=== PATIENT | male | born 1960 | race Caucasian/White ===

== ENCOUNTER 2022-01-11 23:05 | Emergency (ER) | payer OTHER ==
[2022-01-12] MEDS ORDERED: Ondansetron PF 4 MG/2 ML Vial ONE (01:27)
[2022-01-12 01:40] LABS: #Eosinphils 0.1 10x3/uL (0.0-0.5); #Monocytes 0.9 10x3/uL (0.0-1.1); #Neutrophils 14.3 10x3/uL (1.5-8.4); %Basophils 0.2 % (0.0-2.0); %Eosinophils 0.3 % (0.0-6.0); %Lymphocytes 8.6 % (18.0-47.0); %Monocytes 5.1 % (0.0-10.0); %Neutrophils 85.4 % (40.0-75.0); Hemoglobin 13.4 g/dL (13.5-17.5); Mean Corpuscular HGB CONC 35.8 g/dL (32.0-36.0); Mean Corpuscular Hemoglobin 28.5 pg (27.0-33.0); Mean Corpuscular Volume 79.6 fl (81.2-95.1); Mean Platelet Volume 9.9 fl (7.4-10.4); Platelet Count 336 10x3/uL (150-450); RBC Distribution Width 13.6 % (11.5-14.5); White Blood Cell (WBC) Count 16.7 10x3/uL (3.5-10.5)
[2022-01-12 01:54] LABS: SARS-CoV-2 NAA Rapid Test Not Detected (NotDetected)
[2022-01-12 01:58] LABS: ALT (SGPT) 28 U/L (8-55); AST (SGOT) 16 U/L (5-34); Albumin 4.5 g/dL (3.5-5.0); Alkaline Phosphatase 128 U/L (40-110); Anion Gap 18 mmol/L (10-20); BUN (Urea Nitrogen) 37 mg/dL (8.4-25.7); Bilirubin, Total 1.7 mg/dL (0.2-1.2); Calc. Creatinine Clearance 0 mL/min (70-130); Calcium 9.7 mg/dL (7.8-10.44); Carbon Dioxide 33 mmol/L (22-29); Chloride 84 mmol/L (98-107); Estimated GFR 83; Globulin 2.9 g/dL (2.4-3.5); Glucose 359 mg/dL (70-105); Lipase 37 U/L (8-78); Potassium 4.3 mmol/L (3.5-5.1); Protein, Total 7.4 g/dL (6.0-8.3); Sodium 131 mmol/L (136-145)
[2022-01-12 02:21] LABS: CKMB 2.4 ng/mL (0-6.6)
[2022-01-12] MEDS ORDERED: Cefepime 2 GM VIAL ONE (03:13)
[2022-01-12] MEDS ORDERED: Promethazine HCl 25 MG/ML VIAL ONE ×2 (03:18→09:09)
[2022-01-12 04:24] LABS: Bilirubin Neg (Negative); Blood, Urine 10 (Negative); Clarity Clear (Clear); Glucose, Urine (Dipstick) >=1000 mg/dL (Negative); Ketone, Urine 50 mg/dL (Negative); Leukocyte 25 (Negative); Nitrite Negative (Negative); Protein, Urine (Dipstick) 100 mg/dl (Neg-Trace); Urobilinogen Normal mg/dL (Less than 2)
[2022-01-12 04:26] LABS: Bacteria/HPF None Seen HPF (None Seen); RBC/HPF 0-3 HPF (0-3); Squamous Epithelial 0-3 HPF (0-3); WBC/HPF 0-3 HPF (0-3)
[2022-01-12] MEDS ORDERED: Vancomycin 1 GM VIAL ONE (04:33)
[2022-01-12 05:09] LABS: Lactic Acid 2.2 mmol/L (0.5-2.2)
[2022-01-12 05:10] LABS: Actual Bicarbonate (HCO3v) 32 mEq/L (22-28); Base Excess 6.2 mEq/L (-2.0 to +3.0); Calcium, Ionized (venous) 1.03 mmol/L (1.16-1.32); Chloride (VBG) 89 mmol/L (98-106); Hemoglobin (Hb) 13.8 g/dL (13.1-17.2); Potassium (VBG) 3.58 mmol/L (3.70-5.30); Puncture Site Other Site; RapidComm Collect By RN; Sodium 128.6 mmol/L (133-146); pH (venous) 7.44 (7.32-7.43)
[2022-01-12] MEDS ORDERED: Aspirin Chewable 81 MG TAB ONE (06:38)
[2022-01-12 08:50] LABS: Troponin I 0.042 ng/mL (< 0.028)
[2022-01-12] MEDS ORDERED: Iopamidol 300 61% 100 ML VIAL FS ONE (11:30)
== END 2022-01-12 10:47 | disposition short-term general hospital (02) ==
LOC: CSHERS 23:05
DX: K52.9 Noninfective gastroenteritis and colitis, unspecified (principal); R77.8 Other specified abnormalities of plasma proteins; E87.1 Hypo-osmolality and hyponatremia; I25.10 Atherosclerotic heart disease of native coronary artery without angina pectoris; E11.9 Type 2 diabetes mellitus without complications; Z79.4 Long term (current) use of insulin; E78.5 Hyperlipidemia, unspecified; I10 Essential (primary) hypertension; Z79.899 Other long term (current) drug therapy; Z79.82 Long term (current) use of aspirin; Z20.822 Contact with and (suspected) exposure to COVID-19
CPT/HCPCS: 36415; 36416; 70450; 74177; 80053; 81003; 81015; 82010; 82553; 82805; 83605; 83690; 84484; 85025; 87040; 87086; 93005; 96361; 96374; 96375; 96376; J0692; J2405; J2550; J3370; Q9967

== ENCOUNTER 2022-01-24 09:12 | Emergency (ER) | payer OTHER ==
[2022-01-24 10:00] LABS: #Eosinphils 0.2 10x3/uL (0.0-0.5); #Monocytes 0.7 10x3/uL (0.0-1.1); #Neutrophils 6.9 10x3/uL (1.5-8.4); %Basophils 0.2 % (0.0-2.0); %Eosinophils 2.4 % (0.0-6.0); %Lymphocytes 14.9 % (18.0-47.0); %Monocytes 7.4 % (0.0-10.0); %Neutrophils 74.6 % (40.0-75.0); Hemoglobin 10.9 g/dL (13.5-17.5); Mean Corpuscular HGB CONC 35.2 g/dL (32.0-36.0); Mean Corpuscular Hemoglobin 28.6 pg (27.0-33.0); Mean Corpuscular Volume 81.4 fl (81.2-95.1); Mean Platelet Volume 9.8 fl (7.4-10.4); Platelet Count 304 10x3/uL (150-450); RBC Distribution Width 15.2 % (11.5-14.5); Red Blood Cell (RBC) Count 3.81 10x6/uL (4.32-5.72); White Blood Cell (WBC) Count 9.3 10x3/uL (3.5-10.5)
[2022-01-24 10:01] LABS: Actual Bicarbonate (HCO3v) 28 mEq/L (22-28); Base Excess 3.7 mEq/L (-2.0 to +3.0); Chloride (VBG) 94 mmol/L (98-106); Potassium (VBG) 4.29 mmol/L (3.70-5.30); Puncture Site Other Site; RapidComm Collect By CBN; Sodium 128.1 mmol/L (133-146); pH (venous) 7.45 (7.32-7.43)
[2022-01-24 10:18] LABS: ALT (SGPT) 27 U/L (8-55); AST (SGOT) 14 U/L (5-34); Albumin 3.6 g/dL (3.5-5.0); Alkaline Phosphatase 94 U/L (40-110); Anion Gap 14 mmol/L (10-20); BUN (Urea Nitrogen) 21 mg/dL (8.4-25.7); Bilirubin, Total 1.3 mg/dL (0.2-1.2); Calc. Creatinine Clearance 0 mL/min (70-130); Calcium 8.7 mg/dL (7.8-10.44); Carbon Dioxide 25 mmol/L (22-29); Chloride 95 mmol/L (98-107); Estimated GFR 104; Glucose 231 mg/dL (70-105); Potassium 4.4 mmol/L (3.5-5.1); Protein, Total 5.6 g/dL (6.0-8.3); Sodium 130 mmol/L (136-145)
[2022-01-24 10:32] LABS: Acetaminophen Less than 10.0 mcg/mL (10.0-30.0); Alcohol Less than 10 mg/dL (Less than 10); Salicylate Less than 8.0 mg/dL (15.0-30.0)
[2022-01-24 10:33] LABS: Bilirubin Neg (Negative); Blood, Urine Negative (Negative); Clarity Clear (Clear); Glucose, Urine (Dipstick) 250 mg/dL (Negative); Ketone, Urine Negative (Negative); Leukocyte 25 (Negative); Nitrite Negative (Negative); Protein, Urine (Dipstick) Negative (Neg-Trace)
[2022-01-24 10:41] LABS: Amphetamine Not Detected (NotDetected); Barbiturates Screen Not Detected (NotDetected); Benzodiazepine Screen Not Detected (NotDetected); Cocaine Metabolite Screen Not Detected (NotDetected); Methadone Not Detected (NotDetected); Methamphetamine Not Detected (NotDetected); Opiate Screen Detected (NotDetected); Oxycodone Screen Not Detected (NotDetected); Phencyclidine (PCP) Not Detected (NotDetected); THC/Cannabinoid Screen Not Detected (NotDetected); Tricyclic Screen Not Detected (NotDetected)
[2022-01-24 10:56] LABS: Bacteria/HPF Rare-Few HPF (None Seen); RBC/HPF 0-3 HPF (0-3); Squamous Epithelial 0-3 HPF (0-3); WBC/HPF 0-3 HPF (0-3)
[2022-01-24] MEDS ORDERED: Iopamidol 300 61% 100 ML VIAL FS ONE (15:40)
== END 2022-01-24 12:44 ==
LOC: CSHERS 09:12
DX: R41.82 Altered mental status, unspecified (principal); E78.5 Hyperlipidemia, unspecified; I25.10 Atherosclerotic heart disease of native coronary artery without angina pectoris; E11.9 Type 2 diabetes mellitus without complications; I10 Essential (primary) hypertension
CPT/HCPCS: 36415; 70450; 72125; 74177; 80053; 80306; 80307; 81003; 81015; 82805; 83605; 84484; 85025; 93005; 96360; 96361; Q9967

== ENCOUNTER 2023-01-14 10:52 | Emergency (ER) | payer OTHER ==
[2023-01-14 11:21] LABS: Hematocrit 34.2 % (38.8-50.0); Hemoglobin 11.9 g/dL (13.5-17.5); Mean Corpuscular HGB CONC 34.8 g/dL (32.0-36.0); Mean Corpuscular Hemoglobin 28.7 pg (27.0-33.0); Mean Corpuscular Volume 82.6 fl (81.2-95.1); Mean Platelet Volume 10.9 fl (7.4-10.4); Platelet Count 213 10x3/uL (150-450); RBC Distribution Width 12.7 % (11.5-14.5); Red Blood Cell (RBC) Count 4.14 10x6/uL (4.32-5.72)
[2023-01-14 11:23] LABS: MDiff Complete? YES
[2023-01-14 11:43] LABS: Troponin I 0.046 ng/mL (< 0.028)
[2023-01-14 11:44] LABS: ALT (SGPT) 13 U/L (8-55); AST (SGOT) 14 U/L (5-34); Albumin 3.5 g/dL (3.5-5.0); Alkaline Phosphatase 93 U/L (40-110); Anion Gap 19 mmol/L (10-20); BUN (Urea Nitrogen) 36 mg/dL (8.4-25.7); Bilirubin, Total 0.8 mg/dL (0.2-1.2); Calc. Creatinine Clearance 0 mL/min (70-130); Calcium 8.6 mg/dL (7.8-10.44); Carbon Dioxide 21 mmol/L (22-29); Chloride 94 mmol/L (98-107); Estimated GFR 63; Globulin 2.4 g/dL (2.4-3.5); Glucose 271 mg/dL (70-105); Potassium 4.2 mmol/L (3.5-5.1); Protein, Total 5.9 g/dL (6.0-8.3); Sodium 130 mmol/L (136-145)
[2023-01-14 12:02] LABS: Band 10 % (5-11); Monocytes 3 % (0-10); Neutrophil 87 % (42-75)
[2023-01-14 12:03] LABS: Lipase 5 U/L (8-78)
[2023-01-14 12:13] LABS: RBC Morph Comment Within Normal Limits; Toxic Granulation MARKED; Vacuoles MARKED
[2023-01-14 12:14] LABS: Platelet Adequacy Comment Platelets Normal
[2023-01-14 13:00] LABS: SARS-CoV-2 NAA Rapid Test Not Detected (NotDetected)
[2023-01-14] MEDS ORDERED: Aspirin Chewable 81 MG TAB ONE (14:53)
[2023-01-14] MEDS ORDERED: LevoFLOXacin 750 mg/D5W 150 ml Premix Bag ONE (14:53)
[2023-01-14 16:44] LABS: Troponin I Less than 0.010 ng/mL (< 0.028)
[2023-01-14] MEDS ORDERED: Acetaminophen 500 MG TAB ONE (19:15)
== END 2023-01-14 19:43 | disposition short-term general hospital (02) ==
LOC: CSHERS 10:52 → EEVIPCON 10:52 → CSHERS 19:43
DX: J18.9 Pneumonia, unspecified organism (principal); A41.9 Sepsis, unspecified organism; R79.89 Other specified abnormal findings of blood chemistry; I10 Essential (primary) hypertension; I25.10 Atherosclerotic heart disease of native coronary artery without angina pectoris; Z20.822 Contact with and (suspected) exposure to COVID-19
CPT/HCPCS: 36415; 71045; 80053; 83605; 83690; 84484; 85025; 87040; 93005; 96374; J1956

== ENCOUNTER 2023-03-20 09:41 | Emergency (ER) | payer OTHER ==
[2023-03-20] MEDS ORDERED: Ibuprofen 200 MG TAB ONE (10:41)
[2023-03-20 10:52] LABS: #Eosinphils 0.4 10x3/uL (0.0-0.5); #Monocytes 0.5 10x3/uL (0.0-1.1); #Neutrophils 4.7 10x3/uL (1.5-8.4); %Basophils 0.5 % (0.0-2.0); %Eosinophils 5.5 % (0.0-6.0); %Lymphocytes 28.4 % (18.0-47.0); %Monocytes 6.4 % (0.0-10.0); %Neutrophils 58.9 % (40.0-75.0); Hematocrit 37.5 % (38.8-50.0); Hemoglobin 12.9 g/dL (13.5-17.5); Mean Corpuscular HGB CONC 34.4 g/dL (32.0-36.0); Mean Corpuscular Hemoglobin 28.7 pg (27.0-33.0); Mean Corpuscular Volume 83.3 fl (81.2-95.1); Mean Platelet Volume 9.7 fl (7.4-10.4); Platelet Count 267 10x3/uL (150-450); RBC Distribution Width 14.8 % (11.5-14.5); White Blood Cell (WBC) Count 7.9 10x3/uL (3.5-10.5)
[2023-03-20 11:11] LABS: ALT (SGPT) 16 U/L (8-55); AST (SGOT) 12 U/L (5-34); Albumin 4.4 g/dL (3.5-5.0); Alkaline Phosphatase 85 U/L (40-110); Anion Gap 13 mmol/L (10-20); BUN (Urea Nitrogen) 15 mg/dL (8.4-25.7); Bilirubin, Total 0.6 mg/dL (0.2-1.2); Calc. Creatinine Clearance 0 mL/min (70-130); Calcium 9.2 mg/dL (7.8-10.44); Carbon Dioxide 23 mmol/L (22-29); Chloride 107 mmol/L (98-107); Estimated GFR 104; Globulin 2.6 g/dL (2.4-3.5); Glucose 207 mg/dL (70-105); Potassium 4.2 mmol/L (3.5-5.1); Sodium 139 mmol/L (136-145)
== END 2023-03-20 12:44 ==
LOC: CSHERS 09:41 → EEVIPCON 09:41 → CSHERS 12:44
DX: L03.115 Cellulitis of right lower limb (principal); E11.9 Type 2 diabetes mellitus without complications; I10 Essential (primary) hypertension
CPT/HCPCS: 80053; 85025

== ENCOUNTER 2024-01-11 19:51 | Emergency (ER) | payer OTHER ==
[2024-01-11 20:58] LABS: #Basophils 0.05 10x3/uL (0.0-0.2); #Eosinophils 0.38 10x3/uL (0.0-0.5); #Monocytes 0.61 10x3/uL (0.0-1.1); #Neutrophils 11.02 10x3/uL (1.5-8.4); %Basophils 0.4 % (0.0-2.0); %Eosinophils 2.8 % (0.0-6.0); %Lymphocytes 11.1 % (18.0-47.0); %Monocytes 4.5 % (0.0-10.0); %Neutrophils 80.3 % (40.0-75.0); Hematocrit 30.4 % (38.8-50.0); Hemoglobin 10.6 g/dL (13.5-17.5); Mean Corpuscular HGB CONC 34.9 g/dL (32.0-36.0); Mean Corpuscular Hemoglobin 29.3 pg (27.0-33.0); Platelet Count 198 10x3/uL (150-450); RBC Distribution Width 14.3 % (11.5-14.5); Red Blood Cell (RBC) Count 3.62 10x6/uL (4.32-5.72); White Blood Cell (WBC) Count 13.7 10x3/uL (3.5-10.5)
[2024-01-11 21:04] LABS: ALT (SGPT) 17 U/L (8-55); AST (SGOT) 9 U/L (5-34); Albumin 3.1 g/dL (3.4-4.8); Alkaline Phosphatase 85 U/L (40-110); Anion Gap 10 mmol/L (10-20); BUN (Urea Nitrogen) 16 mg/dL (8.4-25.7); Bilirubin, Total 0.7 mg/dL (0.2-1.2); Calc. Creatinine Clearance 0 mL/min (70-130); Calcium 8.7 mg/dL (7.8-10.44); Carbon Dioxide 24 mmol/L (23-31); Chloride 108 mmol/L (98-107); Estimated GFR 103; Globulin 2.2 g/dL (2.4-3.5); Glucose 209 mg/dL (80-115); Potassium 3.9 mmol/L (3.5-5.1); Protein, Total 5.3 g/dL (5.8-8.1); Sodium 138 mmol/L (136-145)
[2024-01-11 21:11] LABS: Troponin I 0.049 ng/mL (< 0.028)
[2024-01-11] MEDS ORDERED: Acetaminophen 325 MG TAB ONE (22:09)
[2024-01-11 22:52] LABS: Troponin I 0.039 ng/mL (< 0.028)
== END 2024-01-12 04:26 | disposition short-term general hospital (02) ==
LOC: CSHERS 19:51
DX: R55 Syncope and collapse (principal); S00.83XA Contusion of other part of head, initial encounter; I95.9 Hypotension, unspecified; I10 Essential (primary) hypertension; E11.42 Type 2 diabetes mellitus with diabetic polyneuropathy; I25.10 Atherosclerotic heart disease of native coronary artery without angina pectoris; E78.5 Hyperlipidemia, unspecified; W22.8XXA Striking against or struck by other objects, initial encounter; Z79.82 Long term (current) use of aspirin; Z79.4 Long term (current) use of insulin; Z79.899 Other long term (current) drug therapy
CPT/HCPCS: 36415; 70450; 70486; 72125; 80053; 84484; 85025; 93005; 93010